=== PATIENT | female | born 1965 | race Caucasian/White ===

== ENCOUNTER 2016-05-22 06:56 | Emergency (ER) | payer OTHER ==
[~2016-05-22] VITALS: Ht 172.7 cm; Wt 123.8 kg
[~2016-05-22 06:56] MED LIST: ADVAIR 500/501 DISK IH; ALBUTEROL2.5 MG/3 M IH; ALLOPURINOL100 MG PO; ALTACE2.5 MG PO; ARTHROTEC 751 TABLET PO; ASPIR-TRIN325 M1 PO; BENADRYL25 MG PO; BENEMID500 MG PO; CIPRO250 MG PO; CLARITIN10 MG PO; CREON 241 CAPSULE PO; DESYREL 150 MG150 MG PO; DULERA 100 MCG/13 GM IH; Desyrel PO; ELAVIL100 MG PO; ELAVIL50 MG PO; ERGOCALCIF50000 UNIT PO; FLONASE16 G1 BOTH NARES; Flonase BOTH NARES; HORIZANT600 MG PO; HUMALOG100 UNIT/1 SC; HUMULIN R500 UNITS/ SC; HYDROXYCHLOROQ200 MG PO; HYSINGLA ER30 MG PO; INSULIN PUMP; KEPPRA750 MG PO; LAMICTAL100 MG PO; LORCET PLUS 7.1 EACH PO; LOVAZA1 GM PO; MAXALT10 MG PO; NORCO 5/3251 TABLET PO; NUVIGIL250 MG PO; NUVIGIL50 MG PO; OTEZLA30 MG PO; POTASSIUM GLUCO90 MG PO; PRAVACHOL80 MG PO; PROAIR HFA8.5 GM IH; PROBIOTIC1 EAC3 PO; RAMIPRIL5 MG PO; REGLAN10 MG PO; REQUIP2 MG PO; SKELAXIN800 MG PO; TRILEPTAL300 MG PO; TROKENDI XR100 MG PO; ULTRAM ER200 MG PO; VITAMIN D-32000 UNI2 PO; VITAMIN D5000 UNI1 PO; VOLTAREN 1% GE100 GM TP; Vitamin D, Drisdol PO; ZOFRAN ODT4 MG PO; ZOFRAN ODT8 MG PO
[2016-05-22 08:24] LABS: HEMATOCRIT 37.2 % (36.0-46.0); MCH 32.2 PG (29.0-34.0); MCHC 34.9 G/DL (30.0-36.0); MCV 92.1 FL (83-99); MEAN PLAT.VOLUME 9.6 uM^3 (9.5-12.4); PLATELET COUNT 180 K/uL (156-360); RBC DIS.WIDTH-CV 12.2 % (11.8-14.6); RBC DIS.WIDTH-SD 40.4 % (39-53); RED BLOOD COUNT 4.04 M/uL (3.80-5.20); WHITE BLOOD COUNT 7.3 K/uL (4.1-10.2)
[2016-05-22 08:32] LABS: CHLORIDE 109 mEq/L (99-109); POTASSIUM 3.9 mEq/L (3.7-5.4); SODIUM 140 mEq/L (136-147)
[2016-05-22 08:34] LABS: GLUCOSE 142 mg/dL (70-99)
[2016-05-22 08:35] LABS: ANION GAP 9 MEQ/L (2-14)
[2016-05-22 08:38] LABS: GFR ESTIMATE (CALCULATED) > 59 mL/min/
[2016-05-22 08:39] LABS: UREA NITROGEN (BUN) 10 mg/dL (9-23)
[2016-05-22 08:41] LABS: LIPASE 8 U/L (1.0-51.0)
[2016-05-22 08:45] LABS: TROP-I INTERPRETATION NEGATIVE; TROPONIN-I < 0.01 ng/mL (0.0-0.30)
[2016-05-22 08:46] LABS: QUANTITATIVE HCG < 4.0 MIU/ML
[2016-05-22 09:18] LABS: ADD MIUA? YES; BILIRUBIN NEGATIVE; BLOOD NEGATIVE; COLOR YELLOW ((YELLOW)); GLUCOSE (STRIP) NEGATIVE; KETONES NEGATIVE; LEUKOCYTES TRACE; NITRITE NEGATIVE; PROTEIN (STRIP) NEGATIVE; UROBILINOGEN 0.2 MG/DL (0.2-1.0)
[2016-05-22 09:24] LABS: BACTERIA RARE /HPF; EPITHELIAL CELLS RARE /HPF; MUCUS NONE SEEN /LPF; RED BLOOD CELLS 0-5 /HPF (0-5); UCUL ADDED? NO; WHITE BLOOD CELLS 0-5 /HPF (0-5)
[2016-05-22] MEDS ORDERED: ZITHROMAX Z-PA250 MG PO (09:56)
[2016-05-22 09:59] VITALS: BP 155/97
[2016-05-22 11:19] LABS: ABS NEUTROPHIL COUNT 2.11; PLAT.SUFFICIENCY ADEQUATE
== END 2016-05-22 10:13 | disposition home or self-care (01) ==
LOC: EME 06:56
PROVIDERS: Emergency Medicine
DX: J40 Bronchitis, not specified as acute or chronic (principal); J45.909 Unspecified asthma, uncomplicated; G89.29 Other chronic pain; E11.9 Type 2 diabetes mellitus without complications; I10 Essential (primary) hypertension; K21.9 Gastro-esophageal reflux disease without esophagitis; R56.9 Unspecified convulsions; G47.30 Sleep apnea, unspecified; Z86.14 Personal history of Methicillin resistant Staphylococcus aureus infection; Z96.41 Presence of insulin pump (external) (internal)
CPT/HCPCS: 71010; 80048; 81003; 83690; 84484; 84702; 85007; 85027; 87070; 87205; 87651 90; 93005; 99281; 99284

== ENCOUNTER → 2016-06-23 | Outpatient (CLI) | payer OTHER ==
[~2016-06-23] MED LIST changes: +AMITRIPTYLINE100 MG PO; +BENZONATATE100 MG PO; +DICLOZOR1 EACH TP; +EPINEPHRIN0.15 MG/01 IM; +ESOMEPRAZOLE MA20 MG PO; +GLUCAGON1 MG IM; +HUMULIN R500 UNIT/1 SC; +HYDROCODON-ACE1 EAC7 PO; +KEPPRA250 MG PO; +LEVETIRACETAM1000 MG PO; +METAXALL800 MG PO; +NUVIGIL150 MG PO; +PROMETHAZINE HC25 M1 PO; +PROVENTIL,2.5 MG/0.5 IH; +REGLAN5 MG PO; +RIZATRIPTAN10 MG PO; +ROPINIROLE HCL2 MG PO; +TRAZODONE HCL150 MG PO; +ZITHROMAX Z-PA250 MG PO; +ZUPLENZ4 MG PO
== END | disposition home or self-care (01) ==
LOC: RAD 19:40
DX: R19.00 Intra-abdominal and pelvic swelling, mass and lump, unspecified site (principal); R16.0 Hepatomegaly, not elsewhere classified; M47.899 Other spondylosis, site unspecified; M16.6 Other bilateral secondary osteoarthritis of hip
CPT/HCPCS: 74176

== ENCOUNTER → 2016-06-29 | Outpatient (CLI) | payer OTHER ==
[~2016-06-29] VITALS: Ht 162.6 cm; Wt 121.0 kg
[2016-06-29 08:31] VITALS: BP 136/74
== END | disposition home or self-care (01) ==
LOC: IVINF 07:00
PROVIDERS: Internal Medicine Endocrinology, Diabetes & Metabolism
DX: R53.83 Other fatigue (principal)
CPT/HCPCS: 80400; 82024 90; 82533 91; 96374; J0834

== ENCOUNTER 2016-07-07 01:37 | Emergency (ER) | payer OTHER ==
[~2016-07-07] VITALS: Ht 162.6 cm; Wt 128.6 kg
[2016-07-07 03:28] LABS: HEMATOCRIT 35.8 % (36.0-46.0); MCH 32.9 PG (29.0-34.0); MCV 91.3 FL (83-99); MEAN PLAT.VOLUME 10.4 uM^3 (9.5-12.4); PLATELET COUNT 229 K/uL (156-360); RBC DIS.WIDTH-CV 11.7 % (11.8-14.6); RBC DIS.WIDTH-SD 39.3 % (39-53); RED BLOOD COUNT 3.92 M/uL (3.80-5.20); WHITE BLOOD COUNT 7.4 K/uL (4.1-10.2)
[2016-07-07 03:39] LABS: CHLORIDE 106 mEq/L (99-109); POTASSIUM 3.8 mEq/L (3.7-5.4); PROTHROMBIN TIME 10.2 (9.2-11.2); PTT 22.9 (25-32); SODIUM 139 mEq/L (136-147)
[2016-07-07 03:41] LABS: GLUCOSE 166 mg/dL (70-99)
[2016-07-07 03:42] LABS: ANION GAP 11 MEQ/L (2-14)
[2016-07-07 03:43] LABS: TOTAL BILIRUBIN 0.3 mg/dL (0.0-1.0)
[2016-07-07 03:44] LABS: ALKALINE PHOSPHATASE 68 IU/L (3-129)
[2016-07-07 03:45] LABS: GFR ESTIMATE (CALCULATED) > 59 mL/min/
[2016-07-07 03:46] LABS: UREA NITROGEN (BUN) 11 mg/dL (9-23)
[2016-07-07 03:48] LABS: LIPASE 10 U/L (1.0-51.0)
[2016-07-07 05:05] LABS: ADD MIUA? NO; BILIRUBIN NEGATIVE; BLOOD NEGATIVE; COLOR YELLOW ((YELLOW)); GLUCOSE (STRIP) NEGATIVE; KETONES NEGATIVE; LEUKOCYTES NEGATIVE; NITRITE NEGATIVE; PROTEIN (STRIP) NEGATIVE; SPECIFIC GRAVITY 1.013 (1.000-1.030); UCUL ADDED? NO; UROBILINOGEN 0.2 MG/DL (0.2-1.0)
[2016-07-07 06:53] VITALS: BP 114/71
== END 2016-07-07 07:00 | disposition home or self-care (01) ==
LOC: EME 01:37
PROVIDERS: Emergency Medicine
DX: R10.9 Unspecified abdominal pain (principal); M71.21 Synovial cyst of popliteal space [Baker], right knee; J45.909 Unspecified asthma, uncomplicated; E11.9 Type 2 diabetes mellitus without complications; Z79.4 Long term (current) use of insulin; I10 Essential (primary) hypertension; Z96.41 Presence of insulin pump (external) (internal); Z91.040 Latex allergy status; Z88.1 Allergy status to other antibiotic agents; Z88.2 Allergy status to sulfonamides; Z88.8 Allergy status to other drugs, medicaments and biological substances; Z91.012 Allergy to eggs; Z86.718 Personal history of other venous thrombosis and embolism; G89.29 Other chronic pain; K21.9 Gastro-esophageal reflux disease without esophagitis
CPT/HCPCS: 80053; 81003; 83690; 85027; 85610; 85730; 93971; 99281; 99284; J1170; J2405; J3010; J7050

== ENCOUNTER 2017-01-06 11:11 | Emergency (ER) | payer OTHER ==
[~2017-01-06] VITALS: Ht 162.6 cm; Wt 119.3 kg
[2017-01-06 17:40] LABS: EOSINOPHIL (%) 0.7 % (0-5); EOSINOPHIL COUNT 0.1 K/uL (0-0.3); HEMATOCRIT 41.3 % (36.0-46.0); IMMATURE GRANULOCYTE (%) 0.3 % (0.0-0.7); INSTRUMENT ABS NEUTROPHIL CT 4.6 K/uL; LYMPHOCYTE COUNT 6.5 K/uL (1.0-2.8); MCH 32.3 PG (29.0-34.0); MCHC 36.3 G/DL (30.0-36.0); MCV 88.8 FL (83-99); MONOCYTE (%) 6.5 % (3-12); MONOCYTE COUNT 0.8 K/uL (0-0.8); NEUTROPHIL (%) 38.3 % (45-76); NEUTROPHIL COUNT 4.6 K/uL (1.8-6.4); PLATELET COUNT 279 K/uL (156-360); RBC DIS.WIDTH-CV 11.6 % (11.8-14.6); RED BLOOD COUNT 4.65 M/uL (3.80-5.20); WHITE BLOOD COUNT 12.1 K/uL (4.1-10.2)
[2017-01-06 17:48] LABS: CHLORIDE 113 mEq/L (99-109); POTASSIUM 3.5 mEq/L (3.7-5.4); SODIUM 140 mEq/L (136-147)
[2017-01-06 17:49] LABS: MAGNESIUM 2.1 mg/dL (1.3-2.7)
[2017-01-06 17:51] LABS: GLUCOSE 93 mg/dL (70-99)
[2017-01-06 17:52] LABS: ANION GAP 8 MEQ/L (2-14)
[2017-01-06 17:53] LABS: TOTAL BILIRUBIN 0.7 mg/dL (0.0-1.0)
[2017-01-06 17:54] LABS: ALKALINE PHOSPHATASE 95 IU/L (3-129); GFR ESTIMATE (CALCULATED) > 59 mL/min/
[2017-01-06 17:55] LABS: UREA NITROGEN (BUN) 10 mg/dL (9-23)
[2017-01-06 18:01] LABS: POINT-OF-CARE METER ID UU14100415
[2017-01-06 18:03] LABS: QUANTITATIVE HCG < 4.0 MIU/ML
[2017-01-06 20:57] LABS: TROP-I INTERPRETATION NEGATIVE; TROPONIN-I < 0.01 ng/mL (0.0-0.30)
[2017-01-06] MEDS ORDERED: MAGOX 400400 MG PO (21:32)
[2017-01-06 21:44] VITALS: BP 137/81
== END 2017-01-06 22:03 | disposition home or self-care (01) ==
LOC: EME 11:11
PROVIDERS: Emergency Medicine
DX: R51 Headache (principal); J34.89 Other specified disorders of nose and nasal sinuses; H53.149 Visual discomfort, unspecified; R11.0 Nausea; M54.5 Low back pain; E11.9 Type 2 diabetes mellitus without complications; Z96.41 Presence of insulin pump (external) (internal); Z79.4 Long term (current) use of insulin; I10 Essential (primary) hypertension; J45.909 Unspecified asthma, uncomplicated; Z86.718 Personal history of other venous thrombosis and embolism; Z86.14 Personal history of Methicillin resistant Staphylococcus aureus infection
CPT/HCPCS: 70450; 70544; 70553; 80053; 82948; 83735; 84443; 84484; 84702; 85025; 99281; 99285; J1200; J1885; J2405; J2550; J2765; J3475; J7030; J7050

== ENCOUNTER 2017-02-23 20:51 | Emergency (ER) | payer OTHER ==
[~2017-02-23] VITALS: Ht 162.6 cm; Wt 117.9 kg
[~2017-02-23 20:51] MED LIST changes: +MAGOX 400400 MG PO
[2017-02-23] MEDS ORDERED: AUGMENTIN875 MG PO (23:15)
[2017-02-23 23:19] VITALS: BP 142/97
[2017-02-24] MEDS ORDERED: ZYVOX600 MG PO (10:38)
[2017-02-24] MEDS ORDERED: TROKENDI XR200 MG PO (22:13)
[2017-02-24] MEDS ORDERED: [UNRECOGNIZED DRUG - OTHER] (22:15)
[2017-02-24] MEDS ORDERED: HYDROCODON-ACE1 EAC8 PO (22:16)
[2017-02-24] MEDS ORDERED: REQUIP2 MG PO (22:16)
== END 2017-02-23 23:20 | disposition home or self-care (01) ==
LOC: EXP 20:51 → EME 20:51 → EXP 23:20
DX: L03.211 Cellulitis of face (principal); Z86.14 Personal history of Methicillin resistant Staphylococcus aureus infection; Z91.040 Latex allergy status; Z88.2 Allergy status to sulfonamides; Z88.1 Allergy status to other antibiotic agents; Z88.8 Allergy status to other drugs, medicaments and biological substances
CPT/HCPCS: 99281; 99284; J0295; J7050

== ENCOUNTER 2017-02-24 07:44 | Emergency (ER) | payer OTHER ==
[~2017-02-24] VITALS: Ht 162.6 cm; Wt 116.0 kg
[~2017-02-24 07:44] MED LIST changes: +AUGMENTIN875 MG PO
[2017-02-24 09:21] LABS: BASOPHIL COUNT 0.1 K/uL (0-0.1); EOSINOPHIL COUNT 0.2 K/uL (0-0.3); IMMATURE GRANULOCYTE (%) 0.3 % (0.0-0.7); LYMPHOCYTE COUNT 4.6 K/uL (1.0-2.8); MCH 32.8 PG (29.0-34.0); MCHC 35.1 G/DL (30.0-36.0); MCV 93.4 FL (83-99); MONOCYTE (%) 7.4 % (3-12); MONOCYTE COUNT 0.7 K/uL (0-0.8); RBC DIS.WIDTH-CV 12.9 % (11.8-14.6); RBC DIS.WIDTH-SD 44.1 % (39-53); RED BLOOD COUNT 4.39 M/uL (3.80-5.20); WHITE BLOOD COUNT 9.6 K/uL (4.1-10.2)
[2017-02-24 09:34] LABS: CHLORIDE 109 mEq/L (99-109); POTASSIUM 4.9 mEq/L (3.7-5.4); SODIUM 137 mEq/L (136-147)
[2017-02-24 09:36] LABS: GLUCOSE 183 mg/dL (70-99)
[2017-02-24 09:38] LABS: ANION GAP 13 MEQ/L (2-14)
[2017-02-24 09:40] LABS: GFR ESTIMATE (CALCULATED) > 59 mL/min/
[2017-02-24 09:41] LABS: UREA NITROGEN (BUN) 14 mg/dL (9-23)
[2017-02-24 10:21] LABS: MEAN PLAT.VOLUME 10.3 uM^3 (9.5-12.4); PLAT.SUFFICIENCY ADEQUATE; PLATELET COUNT 191 K/uL (156-360)
[2017-02-24] MEDS ORDERED: ZYVOX600 MG PO (10:38)
[2017-02-24 11:44] VITALS: BP 131/80
[2017-02-24] MEDS ORDERED: TROKENDI XR200 MG PO (22:13)
[2017-02-24] MEDS ORDERED: [UNRECOGNIZED DRUG - OTHER] (22:15)
[2017-02-24] MEDS ORDERED: HYDROCODON-ACE1 EAC8 PO (22:16)
[2017-02-24] MEDS ORDERED: REQUIP2 MG PO (22:16)
== END 2017-02-24 11:45 | disposition home or self-care (01) ==
LOC: EME 07:44
PROVIDERS: Emergency Medicine
DX: L03.211 Cellulitis of face (principal); E11.9 Type 2 diabetes mellitus without complications; Z86.14 Personal history of Methicillin resistant Staphylococcus aureus infection; Z79.4 Long term (current) use of insulin; I10 Essential (primary) hypertension; J45.909 Unspecified asthma, uncomplicated; F32.9 Major depressive disorder, single episode, unspecified; K21.9 Gastro-esophageal reflux disease without esophagitis; M10.9 Gout, unspecified; R56.9 Unspecified convulsions; Z91.040 Latex allergy status; Z88.2 Allergy status to sulfonamides; Z88.1 Allergy status to other antibiotic agents
CPT/HCPCS: 80048; 85025; 99281; 99284

== ENCOUNTER 2017-04-02 08:31 | Day surgery (SDC) | payer OTHER ==
[~2017-04-02] VITALS: Ht 162.6 cm; Wt 127.0 kg
[~2017-04-02 08:31] MED LIST changes: +DOXYCYCLINE HY100 MG PO; +FLONASE ALLERG9.9 ML BOTH NARES; +HYDROCODON-ACE1 EAC8 PO; +HYSINGLA ER40 MG PO; +INSULIN PUMP MC; +MAGNESIUM400 M1 PO; +POTASSIUM-9999 MG PO; +REQUIP3 MG PO; -ROPINIROLE HCL2 MG PO; +SYMBICORT60 INHALAT IH; -TRAZODONE HCL150 MG PO; +TROKENDI XR200 MG PO; +ZYVOX600 MG PO; +[UNRECOGNIZED DRUG - OTHER]
[2017-04-02 10:05] VITALS: BP 147/79
[2017-04-02 18:50] VITALS: BP 145/81
[2017-04-03 00:10] VITALS: BP 146/75
[2017-04-03 04:23] VITALS: BP 106/52
[2017-04-03 08:21] VITALS: BP 130/76
[2017-04-03] MEDS ORDERED: METAXALONE800 MG PO (10:20)
[2017-04-03] MEDS ORDERED: OXYCODONE HCL5 MG PO (10:20)
[2017-04-03] MEDS ORDERED: PROMETHAZINE HC25 M1 PO (10:20)
[2017-04-03 12:29] VITALS: BP 140/78
== END 2017-04-03 14:41 | disposition home or self-care (01) ==
LOC: SDC 08:31 → 2SOUTH 12:15 → ENRESERV 12:54 → SDC 13:57 → ENRESERV 15:31 → 3EAST 17:57
PROVIDERS: Neurological Surgery
DX: M47.22 Other spondylosis with radiculopathy, cervical region (principal); M50.122 Cervical disc disorder at C5-C6 level with radiculopathy; E11.9 Type 2 diabetes mellitus without complications; Z79.4 Long term (current) use of insulin; L40.50 Arthropathic psoriasis, unspecified; Z86.14 Personal history of Methicillin resistant Staphylococcus aureus infection; Z79.899 Other long term (current) drug therapy; E66.9 Obesity, unspecified; Z68.42 Body mass index [BMI] 45.0-49.9, adult; G89.29 Other chronic pain; G40.909 Epilepsy, unspecified, not intractable, without status epilepticus; I10 Essential (primary) hypertension; J45.909 Unspecified asthma, uncomplicated; E78.5 Hyperlipidemia, unspecified; Z79.82 Long term (current) use of aspirin; Z88.1 Allergy status to other antibiotic agents; Z88.2 Allergy status to sulfonamides; Z88.8 Allergy status to other drugs, medicaments and biological substances; Z91.040 Latex allergy status
CPT/HCPCS: 72020; 76000; 82948; 94640; 94640 76; 94660; 99202; C1713; G0378; J0131; J1100; J1170; J2250; J2405; J2550; J2710; J3010; J3370; J3480

== ENCOUNTER 2017-05-21 07:02 | Observation (INO) | payer OTHER ==
[~2017-05-21] VITALS: Ht 162.6 cm; Wt 111.0 kg
[~2017-05-21 07:02] MED LIST changes: +METAXALONE800 MG PO; +OXYCODONE HCL5 MG PO
[2017-05-21 08:11] LABS: CARBON DIOXIDE (BICARBONATE) 20.7 MEQ/L (20-31)
[2017-05-21 08:32] LABS: ALBUMIN 4.4 g/dL (3.2-4.8); CHLORIDE 109 mEq/L (99-109); POTASSIUM 3.7 mEq/L (3.7-5.4); SODIUM 139 mEq/L (136-147)
[2017-05-21 08:34] LABS: GLUCOSE 146 mg/dL (70-99)
[2017-05-21 08:36] LABS: TOTAL BILIRUBIN 0.8 mg/dL (0.0-1.0)
[2017-05-21 08:38] LABS: ALKALINE PHOSPHATASE 105 IU/L (3-129)
[2017-05-21 08:39] LABS: UREA NITROGEN (BUN) 13 mg/dL (9-23)
[2017-05-21 08:40] LABS: AST (GOT) 17 IU/L (2-34)
[2017-05-21 08:41] LABS: ALT (GPT) 20 IU/L (3-49); LIPASE 6 U/L (1.0-51.0)
[2017-05-21 08:44] LABS: TROP-I INTERPRETATION NEGATIVE; TROPONIN-I < 0.01 ng/mL (0.0-0.30)
[2017-05-21 09:24] LABS: CREATININE 0.7 mg/dL (0.6-1.3); GFR ESTIMATE (CALCULATED) > 59 mL/min/
[2017-05-21 09:47] LABS: BASOPHIL (%) 0.2 % (0-1); EOSINOPHIL COUNT 0.1 K/uL (0-0.3); HEMATOCRIT 44.1 % (36.0-46.0); HEMOGLOBIN 15.8 G/DL (11.9-15.5); IMMATURE GRANULOCYTE (%) 0.2 % (0.0-0.7); LYMPHOCYTE (%) 53.7 % (15-42); LYMPHOCYTE COUNT 4.6 K/uL (1.0-2.8); MCH 32.6 PG (29.0-34.0); MCHC 35.8 G/DL (30.0-36.0); MCV 90.9 FL (83-99); MONOCYTE (%) 7.4 % (3-12); MONOCYTE COUNT 0.6 K/uL (0-0.8); NEUTROPHIL (%) 37.5 % (45-76); NEUTROPHIL COUNT 3.2 K/uL (1.8-6.4); PLATELET COUNT 200 K/uL (156-360); RBC DIS.WIDTH-CV 11.6 % (11.8-14.6); RBC DIS.WIDTH-SD 38.6 % (39-53); RED BLOOD COUNT 4.85 M/uL (3.80-5.20); WHITE BLOOD COUNT 8.6 K/uL (4.1-10.2)
[2017-05-21 12:11] LABS: APPEARANCE CLEAR ((CLEAR)); BILIRUBIN NEGATIVE; BLOOD NEGATIVE; COLOR STRAW ((YELLOW)); GLUCOSE (STRIP) NEGATIVE; KETONES NEGATIVE; LEUKOCYTES TRACE; NITRITE NEGATIVE; PROTEIN (STRIP) NEGATIVE; UROBILINOGEN 0.2 MG/DL (0.2-1.0)
[2017-05-21 12:21] LABS: BACTERIA NONE SEEN /HPF; EPITHELIAL CELLS RARE /HPF; MUCUS NONE SEEN /LPF; RED BLOOD CELLS 0-5 /HPF (0-5); UCUL ADDED? NO; WHITE BLOOD CELLS 0-5 /HPF (0-5)
[2017-05-21 15:33] VITALS: BP 133/84
[2017-05-21 19:30] VITALS: BP 144/86
[2017-05-21 19:50] LABS: C DIFF TOXIN POSITIVE (NEGATIVE)
[2017-05-22] VITALS: BP 144/80
[2017-05-22 03:49] VITALS: BP 126/58
[2017-05-22 05:45] LABS: CHLORIDE 110 MEQ/L (99-109); CREATININE 0.6 MG/DL (0.6-1.3); GFR ESTIMATE (CALCULATED) > 59 mL/min/; GLUCOSE 163 mg/dL (70-99); SODIUM 138 MEQ/L (136-147); UREA NITROGEN (BUN) 7 mg/dL (9-23)
[2017-05-22 07:45] VITALS: BP 158/84
[2017-05-22 12:46] VITALS: BP 110/63
[2017-05-22 20:23] VITALS: BP 99/59
[2017-05-22 23:52] VITALS: BP 144/64
[2017-05-23 03:32] VITALS: BP 116/60
[2017-05-23] MEDS ORDERED: ZOFRAN4 MG PO (08:38)
[2017-05-23] MEDS ORDERED: VANCOMYCIN125 MG/2.5 PO (08:40)
[2017-05-23 09:46] VITALS: BP 131/77
[2017-05-23] MEDS ORDERED: XIIDRA1 EACH BOTH EYES (09:56)
[2017-05-23] MEDS ORDERED: TESSALON200 MG PO (09:56)
[2017-05-23] MEDS ORDERED: HYSINGLA ER40 MG PO (09:58)
[2017-05-23] MEDS ORDERED: VIBRAMYCIN100 MG PO (09:58)
[2017-05-23] MEDS ORDERED: PENNSAID112 GM TP (09:59)
== END 2017-05-23 10:47 | disposition home or self-care (01) ==
LOC: EME 07:02 → EDOF 13:47 → ENRESERV 14:05 → EDOF 14:36 → 5WEST 15:24
PROVIDERS: Emergency Medicine; Internal Medicine
DX: R11.2 Nausea with vomiting, unspecified (principal); A04.72 Enterocolitis due to Clostridium difficile, not specified as recurrent; E10.42 Type 1 diabetes mellitus with diabetic polyneuropathy; D72.820 Lymphocytosis (symptomatic); J32.9 Chronic sinusitis, unspecified; Z96.41 Presence of insulin pump (external) (internal); Z79.4 Long term (current) use of insulin; F32.9 Major depressive disorder, single episode, unspecified; I10 Essential (primary) hypertension; M06.4 Inflammatory polyarthropathy; E05.00 Thyrotoxicosis with diffuse goiter without thyrotoxic crisis or storm; E28.2 Polycystic ovarian syndrome; G43.909 Migraine, unspecified, not intractable, without status migrainosus; Z90.49 Acquired absence of other specified parts of digestive tract; Z88.1 Allergy status to other antibiotic agents; Z88.2 Allergy status to sulfonamides; Z88.8 Allergy status to other drugs, medicaments and biological substances; Z86.14 Personal history of Methicillin resistant Staphylococcus aureus infection; G47.30 Sleep apnea, unspecified
CPT/HCPCS: 74177; 80048; 80053; 81003; 82010; 82803; 82948; 83605; 83690; 84484; 85025; 85025 91; 87493; 93005; 94640; 94640 76; 99202; 99281; 99285; G0378; J0780; J1170; J1650; J2405; J2765; J3010; J7030

== ENCOUNTER 2017-07-04 22:04 | Inpatient (IN) | payer OTHER ==
[~2017-07-04] VITALS: Ht 162.6 cm; Wt 119.6 kg
[~2017-07-04 22:04] MED LIST changes: +ALTACE5 MG PO; +ASPIRIN325 MG PO; +COMPAZINE10 MG PO; -ESOMEPRAZOLE MA20 MG PO; +FLEXERIL10 MG PO; +HIBICLENS118 ML TP; +HYDROCODON-ACE1 EA12 PO; +MIRENA1 EACH IY; +MONODOX100 MG PO; +NEXIUM40 MG PO; +OXAYDO5 MG PO; +PENNSAID112 GM TP; +PENNSAID2 GM TP; +TESSALON PERLE100 MG PO; +VANCOMYCIN125 MG/2.5 PO; +VIBRAMYCIN100 MG PO; +XIIDRA1 EACH BOTH EYES; +ZOFRAN4 MG PO; +ZUPLENZ8 MG PO
[2017-07-05 10:17] VITALS: BP 138/80
[2017-07-05 15:55] LABS: HEMOGLOBIN 13.7 G/DL (11.9-15.5); MCV 90.7 FL (83-99)
[2017-07-05 18:05] VITALS: BP 99/48
[2017-07-05 21:23] VITALS: BP 93/52
[2017-07-05 23:57] VITALS: BP 143/75
[2017-07-06 03:55] VITALS: BP 115/60
[2017-07-06 07:35] LABS: CHLORIDE 110 MEQ/L (99-109); POTASSIUM 4.2 MEQ/L (3.7-5.4); SODIUM 137 MEQ/L (136-147)
[2017-07-06 07:40] LABS: CREATININE 2.5 MG/DL (0.6-1.3); GFR ESTIMATE (CALCULATED) 22 mL/min/; GLUCOSE 133 mg/dL (70-99); UREA NITROGEN (BUN) 18 mg/dL (9-23)
[2017-07-06 07:53] VITALS: BP 90/40
[2017-07-06 12:17] VITALS: BP 100/56
[2017-07-06 15:59] LABS: HEMATOCRIT 29.4 % (36.0-46.0); MCV 90.7 FL (83-99)
[2017-07-06 16:00] LABS: HEMOGLOBIN 10.4 G/DL (11.9-15.5)
[2017-07-06 16:30] VITALS: BP 140/81
[2017-07-07] VITALS: BP 101/52
[2017-07-07 05:33] LABS: HEMATOCRIT 29.5 % (36.0-46.0); HEMOGLOBIN 10.1 G/DL (11.9-15.5); MCV 93.7 FL (83-99)
[2017-07-07 05:44] LABS: CHLORIDE 107 MEQ/L (99-109); CREATININE 2.2 MG/DL (0.6-1.3); GFR ESTIMATE (CALCULATED) 25 mL/min/; GLUCOSE 161 mg/dL (70-99); SODIUM 135 MEQ/L (136-147); UREA NITROGEN (BUN) 23 mg/dL (9-23)
[2017-07-07 15:49] VITALS: BP 113/57
[2017-07-07 23:35] VITALS: BP 97/52
[2017-07-08 05:56] LABS: ALBUMIN 2.8 G/DL (3.2-4.8); CHLORIDE 109 MEQ/L (99-109); CREATININE 1.8 MG/DL (0.6-1.3); GFR ESTIMATE (CALCULATED) 32 mL/min/; GLUCOSE 152 mg/dL (70-99); PHOSPHORUS 4.5 mg/dL (2.5-4.9); POTASSIUM 4.1 MEQ/L (3.7-5.4); SODIUM 135 MEQ/L (136-147); UREA NITROGEN (BUN) 23 mg/dL (9-23)
[2017-07-08 09:00] VITALS: BP 88/66
[2017-07-08] MEDS ORDERED: BENADRYL25 MG PO (09:58)
[2017-07-08] MEDS ORDERED: TYLENOL REGULA325 MG PO (10:08)
[2017-07-08] MEDS ORDERED: SENNA PLUS TAB1 EACH PO (10:09)
[2017-07-08] MEDS ORDERED: ELIQUIS2.5 MG PO (10:10)
[2017-07-08] MEDS ORDERED: CYCLOBENZAPRINE10 MG PO (10:10)
[2017-07-08] MEDS ORDERED: OXYCODONE HCL5 MG PO (10:10)
[2017-07-08] MEDS ORDERED: Salonpas 4% Patch TD (10:10)
[2017-07-08 11:00] VITALS: BP 120/60
[2017-07-08 15:50] VITALS: BP 116/68
== END 2017-07-08 16:54 | disposition home or self-care (01) | DRG 470 ==
LOC: ENRESERV 22:04 → 2SOUTH 07-05 08:39 → 3EAST 07-05 09:28 → 2SOUTH 07-05 09:28 → ENRESERV 07-05 15:05 → 2SOUTH 07-05 16:12 → 3EAST 07-05 17:31
PROVIDERS: Internal Medicine Nephrology; Orthopaedic Surgery; Physician Assistant Surgical
PROC: 0SR904Z Replacement of Right Hip Joint with Ceramic on Polyethylene Synthetic Substitute, Open Approach (ICD-10-PCS; principal; 2017-07-05)
DX: M16.11 Unilateral primary osteoarthritis, right hip (principal); N17.9 Acute kidney failure, unspecified; Z68.41 Body mass index [BMI] 40.0-44.9, adult; E66.01 Morbid (severe) obesity due to excess calories; N18.1 Chronic kidney disease, stage 1; J45.909 Unspecified asthma, uncomplicated; M06.9 Rheumatoid arthritis, unspecified; E10.22 Type 1 diabetes mellitus with diabetic chronic kidney disease; I12.9 Hypertensive chronic kidney disease with stage 1 through stage 4 chronic kidney disease, or unspecified chronic kidney disease; T39.395A Adverse effect of other nonsteroidal anti-inflammatory drugs [NSAID], initial encounter; F32.9 Major depressive disorder, single episode, unspecified; E78.5 Hyperlipidemia, unspecified; G47.30 Sleep apnea, unspecified; R56.9 Unspecified convulsions; M35.00 Sjogren syndrome, unspecified; M10.9 Gout, unspecified; M48.00 Spinal stenosis, site unspecified; E28.2 Polycystic ovarian syndrome; E78.1 Pure hyperglyceridemia; Z98.1 Arthrodesis status; Z79.01 Long term (current) use of anticoagulants; Z88.2 Allergy status to sulfonamides; Z90.49 Acquired absence of other specified parts of digestive tract; Z79.4 Long term (current) use of insulin; Z86.14 Personal history of Methicillin resistant Staphylococcus aureus infection; Z82.5 Family history of asthma and other chronic lower respiratory diseases; Z82.49 Family history of ischemic heart disease and other diseases of the circulatory system; Z68.42 Body mass index [BMI] 45.0-49.9, adult
CPT/HCPCS: 73501; 80048; 80069; 82656 90; 82948; 85014; 85018; 87329; 94640; 94640 76; 94660; 97530 GP; 99202; C1713; J0330; J1170; J1885; J2250; J2370; J2405; J3010; J3370; J7030; J7040; J7050; Q0164

== ENCOUNTER 2017-07-29 16:26 | Emergency (ER) | payer OTHER ==
[~2017-07-29] VITALS: Ht 162.6 cm; Wt 110.4 kg
[~2017-07-29 16:26] MED LIST changes: +CYCLOBENZAPRINE10 MG PO; +ELIQUIS2.5 MG PO; +SENNA PLUS TAB1 EACH PO; +Salonpas 4% Patch TD; +TYLENOL REGULA325 MG PO
[2017-07-29 17:27] LABS: BASOPHIL (%) 0.6 % (0-1); BASOPHIL COUNT 0.1 K/uL (0-0.1); EOSINOPHIL (%) 1.6 % (0-5); EOSINOPHIL COUNT 0.2 K/uL (0-0.3); HEMATOCRIT 38.3 % (36.0-46.0); IMMATURE GRANULOCYTE (%) 0.2 % (0.0-0.7); LYMPHOCYTE (%) 58.8 % (15-42); LYMPHOCYTE COUNT 6.2 K/uL (1.0-2.8); MCH 32.1 PG (29.0-34.0); MCHC 35.8 G/DL (30.0-36.0); MONOCYTE (%) 5.5 % (3-12); MONOCYTE COUNT 0.6 K/uL (0-0.8); NEUTROPHIL (%) 33.3 % (45-76); NEUTROPHIL COUNT 3.5 K/uL (1.8-6.4); PLATELET COUNT 218 K/uL (156-360); RBC DIS.WIDTH-CV 12.2 % (11.8-14.6); RBC DIS.WIDTH-SD 39.8 % (39-53); RED BLOOD COUNT 4.27 M/uL (3.80-5.20); WHITE BLOOD COUNT 10.5 K/uL (4.1-10.2)
[2017-07-29 17:36] LABS: HEMOGLOBIN 13.7 G/DL (11.9-15.5); MCV 89.7 FL (83-99)
[2017-07-29 17:44] LABS: ALBUMIN 4.5 g/dL (3.2-4.8)
[2017-07-29 17:45] LABS: CHLORIDE 105 mEq/L (99-109); POTASSIUM 3.6 mEq/L (3.7-5.4); SODIUM 138 mEq/L (136-147)
[2017-07-29 17:47] LABS: GLUCOSE 88 mg/dL (70-99); TOTAL PROTEIN 7.7 g/dL (6.4-8.3)
[2017-07-29 17:49] LABS: TOTAL BILIRUBIN 0.6 mg/dL (0.0-1.0)
[2017-07-29 17:50] LABS: ALKALINE PHOSPHATASE 146 IU/L (3-129)
[2017-07-29 17:51] LABS: CREATININE 0.8 mg/dL (0.6-1.3); GFR ESTIMATE (CALCULATED) > 59 mL/min/
[2017-07-29 17:52] LABS: AST (GOT) 16 IU/L (2-34); UREA NITROGEN (BUN) 18 mg/dL (9-23)
[2017-07-29 17:53] LABS: ALT (GPT) 15 IU/L (3-49)
[2017-07-29 17:54] LABS: LIPASE 11 U/L (1.0-51.0)
[2017-07-29 18:02] LABS: APPEARANCE CLEAR ((CLEAR)); BILIRUBIN NEGATIVE; BLOOD NEGATIVE; COLOR YELLOW ((YELLOW)); GLUCOSE (STRIP) NEGATIVE; KETONES NEGATIVE; LEUKOCYTES NEGATIVE; NITRITE NEGATIVE; PROTEIN (STRIP) NEGATIVE; SPECIFIC GRAVITY 1.012 (1.000-1.030); UCUL ADDED? NO; UROBILINOGEN 0.2 MG/DL (0.2-1.0)
[2017-07-29] MEDS ORDERED: AUGMENTIN875 MG PO (20:55)
[2017-07-29 21:33] VITALS: BP 143/86
== END 2017-07-29 21:35 | disposition home or self-care (01) ==
LOC: EME 16:26
PROVIDERS: Emergency Medicine
DX: N12 Tubulo-interstitial nephritis, not specified as acute or chronic (principal); J45.909 Unspecified asthma, uncomplicated; I10 Essential (primary) hypertension; K21.9 Gastro-esophageal reflux disease without esophagitis; M10.9 Gout, unspecified; E28.2 Polycystic ovarian syndrome; G47.30 Sleep apnea, unspecified; Z96.641 Presence of right artificial hip joint; Z88.2 Allergy status to sulfonamides; Z88.1 Allergy status to other antibiotic agents; Z91.040 Latex allergy status
CPT/HCPCS: 74176; 80053; 81003; 82948; 83605; 83690; 85025; 99281; 99285; J7030

== ENCOUNTER 2017-11-17 19:51 | Emergency (ER) | payer OTHER ==
[~2017-11-17] VITALS: Ht 162.6 cm; Wt 115.4 kg
[2017-11-17 22:16] VITALS: BP 108/72
== END 2017-11-17 22:17 | disposition home or self-care (01) ==
LOC: EME 19:51
DX: M54.9 Dorsalgia, unspecified (principal); G89.29 Other chronic pain; M06.9 Rheumatoid arthritis, unspecified; I10 Essential (primary) hypertension; K21.9 Gastro-esophageal reflux disease without esophagitis; J45.909 Unspecified asthma, uncomplicated; G47.30 Sleep apnea, unspecified; Z90.49 Acquired absence of other specified parts of digestive tract; Z86.14 Personal history of Methicillin resistant Staphylococcus aureus infection; Z91.040 Latex allergy status; Z88.2 Allergy status to sulfonamides; Z88.1 Allergy status to other antibiotic agents; Z88.8 Allergy status to other drugs, medicaments and biological substances
CPT/HCPCS: 99281; 99285; J2765; J7040